=== PATIENT | male | born 2000 | race American Indian/Alaskan Native ===

== ENCOUNTER 2020-10-21 13:00 | Emergency (ER) | payer OTHER ==
[2020-10-21 13:16] VITALS: BP 120/78
--- NOTE | 2020-10-21 13:53 | XRay Report ---
RIGHT HAND 2 VIEWS INDICATION: PAIN AND SWELLING. COMPARISON: None. IMPRESSION: There appears to be a small chip fracture from the distal third metacarpal seen on the A P view only. There is mild soft tissue swelling at this level. Correlate for point tenderness. No si gnificant DJD. Previous internal fixation of the fourth metacarpal is noted. Signer Name: Tanvir Chow Jr, MD Signed: 10/21/2020 1:49 PM Workstation Name: [id number]
[2020-10-21] MEDS ORDERED: IBUPROFEN 600 MG TAB PO ONE (14:03)
--- NOTE | 2020-10-21 14:39 | Emergency Department Report ---
ED Upper Extremity Inj HPI - General Chief Complaint: Extremity Injury, Upper Stated Complaint: POSSIBLE FX RT HAND Time Seen by Provider: 10/21/20 13:20 Source: patient Mode of arrival: Ambulatory Limitations: No Limitations - History of Present Illness Initial Comments: Patient is a 20-year-old male presents emergency room complaints of a right hand injury that occurred yesterday. He states he was playing and wrestling around with his friend when his friend fell and landed on his right hand. He states since then he has had right hand pain and swelling. He states he has fractured this hand in the past in 2019 and had to have surgery. He denies any numbness, weakness, he is able to move the digits without difficulty. No other past medical history. No allergies to medications. - Related Data Previous Rx's Medication Instructions Recorded Last Taken Type Naproxen [EC-Naprosyn] 500 mg PO BID PRN #14 tablet. 10/21/20 Unknown Rx Allergies Allergy/AdvReac Type Severity Reaction Status Date / Time No Known Allergies Allergy Unverified 10/21/20 13:13 ED Review of Systems ROS: Stated complaint: POSSIBLE FX RT HAND Other details as noted in HPI Comment: All other systems reviewed and negative ED Past Medical Hx - Past Medical History Previous Medical History?: No - Surgical History Past Surgical History?: Yes Additional Surgical History: SURGERY - Medications Home Medications: Home Medications Medication Instructions Recorded Confirmed Last Taken Type Naproxen [EC-Naprosyn] 500 mg PO BID PRN #14 tablet. 10/21/20 Unknown Rx ED Physical Exam - General Limitations: No Limitations General appearance: alert, in no apparent distress - Head Head exam: Present: atraumatic, normocephalic - Eye Eye exam: Present: normal appearance - ENT ENT exam: Present: mucous membranes moist - Respiratory Respiratory exam: Absent: respiratory distress, accessory muscle use - Extremities Exam Extremities exam: Present: other (ttp and edema present to the dorsal surface of the right hand overlying the 3rd metacarpal, FROM of the RUE, no wrist ttp, no snuffbox ttp, neurovascularly intact) - Neurological Exam Neurological exam: Present: alert, oriented X3 - Psychiatric Psychiatric exam: Present: normal affect, normal mood - Skin Skin exam: Present: warm, dry, intact ED Course Vital Signs 10/21/20 13:15 Temperature 98.1 F Pulse Rate 77 Respiratory 18 Rate Blood Pressure 120/78 [Right] O2 Sat by Pulse 98 Oximetry ED Medical Decision Making - Radiology Data Radiology results: report reviewed, image reviewed Ordering Physician: DORIS QUINTANA DO Date of Service: 10/21/20 Procedure(s): XR hand 2V RT Accession Number(s): [id number] cc: DORIS QUINTANA DO Fluoro Time In Minutes: RIGHT HAND 2 VIEWS INDICATION: PAIN AND SWELLING. COMPARISON: None. IMPRESSION: There appears to be a small chip fracture from the distal third metacarpal seen on the AP view only. There is mild soft tissue swelling at this level. Correlate for point tenderness. No significant DJD. Previous internal fixation of the fourth metacarpal is noted. Signer Name: Tanvir Chow Jr, MD Signed: 10/21/2020 1:49 PM Workstation Name: [id number] Transcribed By: TTR Dictated By: TANVIR CHOW JR, MD Electronically Authenticated By: TANVIR CHOW JR, MD Signed Date/Time: 10/21/20 1349 DD/ 1348 TD/TT: - Medical Decision Making Patient is a 20-year-old male presents emergency room complaints of a right hand injury that occurred yesterday. He states he was playing and wrestling around with his friend when his friend fell and landed on his right hand. He states since then he has had right hand pain and swelling. He states he has fractured this hand in the past in 2019 and had to have surgery. He denies any numbness, weakness, he is able to move the digits without difficulty. No other past medical history. No allergies to medications. vitals are normal. on exam: ttp and edema present to the dorsal surface of the right hand overlying the 3rd metacarpal, FROM of the RUE, no wrist ttp, no snuffbox ttp, neurovascularly intact. XR right hand: IMPRESSION: There appears to be a small chip fracture from the distal third metacarpal seen on the AP view only. There is mild soft tissue swelling at this level. Correlate for point tenderness. No significant DJD. Previous internal fixation of the fourth metacarpal is noted. Likely related to metacarpal fracture given point tenderness and swelling and x-ray results. Patient placed in a radial gutter splint by end matcher, and remained neurovascularly intact. Discussed the importance of orthopedic follow-up with patient. Patient can prescription for naproxen. Advised patient please take medication as prescribed as needed. please do not remove splint. follow up with an orthopedic doctor. return to the emergency room for any new or worsening symptoms. Critical care attestation.: If time is entered above; I have spent that time in minutes in the direct care of this critically ill patient, excluding procedure time. ED Disposition Clinical Impression: Metacarpal bone fracture Qualifiers: Encounter type: initial encounter Metacarpal bone: third Fracture type: closed Metacarpal location: shaft Fracture alignment: nondisplaced Laterality: right Qualified Code(s): S62.352A - Nondisplaced fracture of shaft of third metacarpal bone, right hand, initial encounter for closed fracture Disposition: TO HOME OR SELFCARE Is pt being admited?: No Does the pt Need Aspirin: No Condition: Stable Instructions: Metacarpal Fracture Additional Instructions: please take medication as prescribed as needed. please do not remove splint. follow up with an orthopedic doctor. return to the emergency room for any new or worsening symptoms. Prescriptions: Naproxen [EC-Naprosyn] 500 mg PO BID PRN #14 tablet.dr [place] Reason: pain Referrals: [facility] [Provider Group] - 2-3 Days STEPHANIE ENRIQUEZ MD [Staff Physician] - 2-3 Days Time of Disposition: 14:38 Print Language: AMERICAN
== END 2020-10-21 15:43 | disposition home or self-care (01) ==
LOC: ED 13:00
DX: S62.352A Nondisplaced fracture of shaft of third metacarpal bone, right hand, initial encounter for closed fracture (principal); Z79.899 Other long term (current) drug therapy; W18.30XA Fall on same level, unspecified, initial encounter; Y93.89 Activity, other specified; Y92.89 Other specified places as the place of occurrence of the external cause; Y99.8 Other external cause status
CPT/HCPCS: 99283

== ENCOUNTER 2020-12-11 23:11 | Emergency (ER) | payer OTHER ==
[2020-12-11 23:36] VITALS: BP 129/69
--- NOTE | 2020-12-11 23:53 | Emergency Department Report ---
ED ENT HPI - General Chief complaint: Sore Throat Stated complaint: SORE THROAT Time Seen by Provider: 12/11/20 23:41 Source: patient Mode of arrival: Ambulatory Limitations: No Limitations - History of Present Illness Initial comments: Patient is a 20-year-old male presents emergency room complaints of a sore throat that began yesterday. Patient states that last night he had one episode of vomiting. He states he has been able to tolerate p.o. intake today. He has associated subjective fever, chills, generalized body aches. Patient denies any cough, diarrhea, shortness of breath, chest pain, abdominal pain. Patient denies any sick contacts. Patient states that he traveled to [place] a month ago. No past medical history. No allergies medications. Patient denies any recent antibiotics. - Related Data Previous Rx's Medication Instructions Recorded Last Taken Type Naproxen [EC-Naprosyn] 500 mg PO BID PRN #14 tablet. 10/21/20 Unknown Rx Penicillin Vk [Veetids TAB] 500 mg PO BID 10 Days #40 tablet 12/11/20 Unknown Rx Allergies Allergy/AdvReac Type Severity Reaction Status Date / Time No Known Allergies Allergy Unverified 10/21/20 13:13 ED Dental HPI - General Chief complaint: Sore Throat Stated complaint: SORE THROAT Time Seen by Provider: 12/11/20 23:41 Source: patient Mode of arrival: Ambulatory Limitations: No Limitations - Related Data Previous Rx's Medication Instructions Recorded Last Taken Type Naproxen [EC-Naprosyn] 500 mg PO BID PRN #14 tablet. 10/21/20 Unknown Rx Penicillin Vk [Veetids TAB] 500 mg PO BID 10 Days #40 tablet 12/11/20 Unknown Rx Allergies Allergy/AdvReac Type Severity Reaction Status Date / Time No Known Allergies Allergy Unverified 10/21/20 13:13 ED Review of Systems ROS: Stated complaint: SORE THROAT Other details as noted in HPI Comment: All other systems reviewed and negative ED Past Medical Hx - Past Medical History Previous Medical History?: No - Surgical History Past Surgical History?: Yes Additional Surgical History: Hand surgery - Social History Smoking Status: Never Smoker - Medications Home Medications: Home Medications Medication Instructions Recorded Confirmed Last Taken Type Naproxen [EC-Naprosyn] 500 mg PO BID PRN #14 tablet. 10/21/20 Unknown Rx Penicillin Vk [Veetids TAB] 500 mg PO BID 10 Days #40 tablet 12/11/20 Unknown Rx ED Physical Exam - General Limitations: No Limitations General appearance: alert, in no apparent distress - Head Head exam: Present: atraumatic, normocephalic - Eye Eye exam: Present: normal appearance - ENT ENT exam: Present: mucous membranes moist, TM's normal bilaterally, normal external ear exam, other (bilateral tonsilar hypertrophy and erythema and exudates, uvula is midline, no uvular edema or deviation, no trismus, no tongue elevation, no muffled voice) - Respiratory Respiratory exam: Present: normal lung sounds bilaterally. Absent: respiratory distress, wheezes, rales, rhonchi, stridor, chest wall tenderness, accessory muscle use, decreased breath sounds, prolonged expiratory - Cardiovascular Cardiovascular Exam: Present: regular rate, normal rhythm, normal heart sounds. Absent: systolic murmur, diastolic murmur, rubs, gallop - Neurological Exam Neurological exam: Present: alert, oriented X3 - Psychiatric Psychiatric exam: Present: normal affect, normal mood - Skin Skin exam: Present: warm, dry, intact ED Course Vital Signs 12/11/20 12/11/20 23:33 23:34 Temperature 99.6 F 99.6 F Pulse Rate 100 H Respiratory 16 Rate Blood Pressure 129/69 O2 Sat by Pulse 98 Oximetry ED Medical Decision Making - Medical Decision Making Patient is a 20-year-old male presents emergency room complaints of a sore throat that began yesterday. Patient states that last night he had one episode of vomiting. He states he has been able to tolerate p.o. intake today. He has associated subjective fever, chills, generalized body aches. Patient denies any cough, diarrhea, shortness of breath, chest pain, abdominal pain. Patient denies any sick contacts. Patient states that he traveled to [place] a month ago. No past medical history. No allergies medications. Patient denies any recent antibiotics. Vitals are stable. On exam:bilateral tonsilar hypertrophy and erythema and exudates, uvula is midline, no uvular edema or deviation, no trismus, no tongue elevation, no muffled voice. Examination appears consistent with tonsillitis. No signs of peritonsillar abscess at this time. Patient given prescription for penicillin VK. Advised patient Please take medication as prescribed. Gargle with warm salt water. May alternate Tylenol and then ibuprofen as needed for pain or fever. Increase your fluid intake over the next several days. Throw away your toothbrush. Do not drink after others or allow others to drink after you. Return to emergency room for any worsening symptoms. Critical care attestation.: If time is entered above; I have spent that time in minutes in the direct care of this critically ill patient, excluding procedure time. ED Disposition Clinical Impression: Tonsillitis Disposition: DC- TO HOME OR SELFCARE Is pt being admited?: No Does the pt Need Aspirin: No Condition: Stable Instructions: Tonsillitis, [id number] Additional Instructions: Please take medication as prescribed. Gargle with warm salt water. May alternate Tylenol and then ibuprofen as needed for pain or fever. Increase your fluid intake over the next several days. Throw away your toothbrush. Do not drink after others or allow others to drink after you. Return to emergency room for any worsening symptoms. Prescriptions: Penicillin Vk [Veetids TAB] 500 mg PO BID 10 Days #40 tablet Referrals: DEMETRIO GOODEN MD [Staff Physician] - 3-5 Days [facility] [Provider Group] - 3-5 Days Time of Disposition: 23:52 Print Language: NORWE[place]
== END 2020-12-12 00:02 | disposition home or self-care (01) ==
LOC: ED 23:11
DX: J03.90 Acute tonsillitis, unspecified (principal); Z98.890 Other specified postprocedural states; Z79.899 Other long term (current) drug therapy
CPT/HCPCS: 99282

== ENCOUNTER 2020-12-16 07:05 | Emergency (ER) | payer OTHER ==
[2020-12-16 07:22] VITALS: BP 119/74
== END 2020-12-16 09:46 | disposition left against medical advice (07) ==
LOC: ED 07:05
DX: J02.9 Acute pharyngitis, unspecified (principal); Z53.21 Procedure and treatment not carried out due to patient leaving prior to being seen by health care provider